=== PATIENT | male | born 1955 | race Caucasian/White ===

== ENCOUNTER 2019-12-23 12:28 | Outpatient (REF) | payer MEDICARE, MEDICAID, SELFPAY ==
[2019-12-23 15:22] LABS: Anion Gap 13 (12-20); Blood Urea Nitrogen 33 mg/dL (9-16); Calcium 8.9 mg/dL (8.4-10.2); Carbon Dioxide 27 mmol/L (22-29); Chloride 102 mmol/L (96-108); Estimated Glomerular Filt Rate > 60; Glucose Random 155 mg/dL (60-115); Potassium 3.8 mmol/l (3.3-5.1); Sodium 138 mmol/L (135-145)
== END 2019-12-23 12:29 | disposition home or self-care (01) ==
LOC: HO.LAB 12:28
PROVIDERS: PCP Internal Medicine; Referring Provider Internal Medicine; Visit Provider Internal Medicine Cardiovascular Disease
DX: I42.9 Cardiomyopathy, unspecified (principal); I25.10 Atherosclerotic heart disease of native coronary artery without angina pectoris
CPT/HCPCS: 80048; 93005; 99202

== ENCOUNTER → 2020-03-23 10:23 | Outpatient (BNVA) | payer MEDICARE, MEDICAID, SELFPAY | PROVIDERS: PCP Internal Medicine; Visit Provider Internal Medicine Cardiovascular Disease | DX: I25.118 Atherosclerotic heart disease of native coronary artery with other forms of angina pectoris (principal); I25.5 Ischemic cardiomyopathy; I10 Essential (primary) hypertension | CPT/HCPCS: 99212 ==

== ENCOUNTER → 2020-03-24 14:19 | Outpatient (REF) | payer MEDICARE, MEDICAID, SELFPAY ==
--- NOTE | 2020-03-24 14:37 | CA_ITS ---
Transthoracic Echocardiogram Patient (Last, First, Middle): Newton Bruner, Gender: Male Date of : 1955 Age: 64 Procedure Date: 03/24/2020 Procedure Type: Transthoracic Echocardiogram Location: OP Height: 175.26 cm Weight: 113.4 kg BSA: 2.27 m2 Heart Rate: bpm BP: 136 / 84 mmHg Vest Backer: Referring MD: Pavel Connor MD Symptoms: I42.9 - Cardiomyopathy, unspecified Study Quality: Fair ECG Rhythm: Sinus Conclusions: - The left ventricular systolic function is normal. The visually estimated ejection fraction is between 55-60%. - The left atrium is moderately dilated. - No obvious valvular pathology seen on this study. Findings Left Ventricle Normal left ventricular cavity size. There is mildly increased left ventricular wall thickness. The left ventricular systolic function is normal. The visually estimated ejection fraction is between 55-60%. E/E prime ratio is <8, consistent with normal filling pressures. Evidence suggests grade I (mild) diastolic dysfunction. Right Ventricle Normal right ventricular cavity size and systolic function. Atria The left atrium is moderately dilated. The right atrium is normal in size. Aortic Valve There is a normal trileaflet aortic valve. There is no aortic valve stenosis. There is no aortic valve regurgitation. Mitral Valve The mitral valve appears normal. There is trace mitral valve regurgitation. There is no mitral valve stenosis. Pulmonic Valve The pulmonic valve was not well visualized. Tricuspid Valve Normal tricuspid valve structure. There is trace tricuspid valve regurgitation. The pulmonary artery systolic pressure is normal. Great Vessels The aortic annulus, sinuses of valsalva, and asc aorta are normal in size. Venous The inferior vena cava is normal in size and collapses greater than 50% with inspiration. Pericardium/Pleural There is no evidence of pericardial effusion. Prior Study Comparison No prior study available for comparison. Recommendations, Care & Conclusions No obvious valvular pathology seen on this study. Measurements 2D Linear Measurements IVSd: 1.23 0.6-0.9/0.6-1.0 cm LVIDd: 4.09 3.9-5.3/4.2-5.9 cm LVIDd Index: 1.80 2.4-3.2/2.2-3.1 cm/m2 LVIDs: 2.93 2.0-3.6 cm LVPWd: 1.28 0.7-1.1 cm Ao Root: 3.20 2.1-3.5 cm LA Diam: 4.10 2.7-3.8/3.0-4.0 cm LAIDs Index: 1.81 1.5-2.3 cm/m2 LV Mass: 227.84 67-162/88-224 g LV Mass Index: 100.37 43-95/49-115 g/m2 LVOT Diam: 2.30 3.0+(-)1.3 cm 2D Systolic Function EF 4C: 51.20 >55% EF 2C: 55.80 >55% EF BiP: 54.30 >55% Mitral Valve MV Pk E: 0.54 MV PK A: 0.87 MV Decel Time: 190.00 E/A: 0.60 E'Lateral: 7.35 E'Medial: 7.06 E/E' Med: 7.60 E/E' Lat: 7.30 PHT: 56.00 MVA PHT: 3.93 Decel [place]: 2.83 Aortic Valve AoV Pk Josh: 1.31 AoV Mn Josh: 0.94 AoV VTI: 0.29 AoV Pk Grad: 7.00 Aov Mn Grad: 4.00 RACHEL Cont.VTI: 2.68 LVOT LVOT Pk Josh: 0.85 LVOT Mn Josh: 0.56 LVOT VTI: 0.19 LVOT Pk Grad: 3.00 LVOT Mn Grad: 2.00 LVOT Diam: 2.30 LVOT Area: 4.15 Diastolic Function MV Pk E: 0.54 MV Pk A: 0.87 E/A: 0.60 E'Medial: 7.06 E/E' Med: 7.60 E' Laterial: 7.35 E/E' Lat: 7.30 Tricuspid Valve TR Pk Josh: 2.24 TR Pk Grad: 20.00 Great Vessels Aorta Ao Root-2D: 3.20 2.0-3.7 cm Ao Asc: 3.70 2.1-3.4 cm Pulmonary Valve PV Pk Josh: 1.05 Peak PV Grad: 4.00 Updated in Other Vendor System with Status of Final Helio iRtchie MD electronically signed on 03/24/2020 4:32:34 PM with status of Final
== END ==
LOC: HO.CARD 14:19
PROVIDERS: Visit Provider Internal Medicine Cardiovascular Disease
DX: I42.9 Cardiomyopathy, unspecified (principal)
CPT/HCPCS: 93306

== ENCOUNTER → 2020-05-06 09:20 | Outpatient (BNVA) | payer MEDICARE, MEDICAID, SELFPAY | PROVIDERS: PCP Internal Medicine; Visit Provider Internal Medicine Cardiovascular Disease | DX: I25.118 Atherosclerotic heart disease of native coronary artery with other forms of angina pectoris (principal); I10 Essential (primary) hypertension | CPT/HCPCS: 99212 ==

== ENCOUNTER 2020-10-12 13:53 | Emergency (ER) | payer MEDICARE, MEDICAID, SELFPAY ==
[2020-10-12 14:08] VITALS: BP 100/58; PULSE 88; RESP 16; TEMP 37.1; O2SAT 98; BMI 32.1
--- NOTE | 2020-10-12 17:05 | ED_ITS ---
HPI - Eye Problem General Chief complaint: Eye Problems Stated complaint: right eye pain and swelling x2 weeks Time Seen by Provider: 10/12/20 16:04 Source: patient and EMS Mode of arrival: EMS Limitations: language barrier History of Present Illness HPI Narrative: 65 y/o male presenting with 2 weeks of intermittent black spots in his left eye and vision loss. He reports the black spot move when he moves his eye. When asked if it looks like a black curtain coming down and he reports yes and it is slightly worse each day.. He reports decreased vision in both eyes when he is out in the sunlight. He has not seen an eye doctor in several years. He has baseline bad vision. He cannot drive because of it. He reports his glucose has been well controlled at home 110-140's. chief complaint: vision change and other (black spots) Onset (ago): week(s) (2) Onset description: gradual Duration: progressively worsening Location: left eye Eye Symptoms: decreased vision Place: home Mechanism: none Severity: moderate Associated symptoms: none Treatments Prior to Arrival: none Related Data Patient tetanus UTD: Yes Home Medications Medication Instructions Recorded Confirmed atorvastatin 80 mg tablet 80 mg PO DAILY 12/23/19 12/23/19 carvedilol 6.25 mg tablet 6.25 mg PO BID 12/23/19 12/23/19 clopidogrel 75 mg tablet (Plavix) 75 mg PO DAILY 12/23/19 12/23/19 insulin NPH-regular 70-30 U-100 25 unit SUBCUT QAM 12/23/19 12/23/19 insulin 100 unit/mL subcutaneous pen (Novolin 70-30 FlexPen U-100 Insulin) metformin 1,000 mg tablet 1,000 mg PO BID 12/23/19 12/23/19 spironolactone 25 mg tablet 25 mg PO DAILY 12/23/19 12/23/19 torsemide 20 mg tablet 20 mg PO DAILY 12/23/19 12/23/19 Previous Rx's Medication Instructions Recorded sacubitril 49 mg-valsartan 51 mg 1 tab PO BID #60 tab 05/11/20 tablet (Entresto) Allergies Allergy/AdvReac Type Severity Reaction Status Date / Time No Known Allergies Allergy Unverified 10/31/19 17:28 Review of Systems Constitutional: Constitutional: Denies chills, Denies fever(s) and Denies headache(s) Eyes: Eyes: Reports blurry vision, Reports change in vision, Denies eye discharge, Reports floaters, Denies irritation, Denies itchy eyes, Denies loss of peripheral vision, Reports loss of vision, Reports photophobia, Reports spots in vision and Denies tunnel vision ENT: Denies dizziness and Denies headache(s) Cardiovascular: Cardiovascular: Denies chest pain and Denies dyspnea Respiratory: Respiratory: Denies dyspnea Gastrointestinal: Gastrointestinal: Denies nausea and Denies vomiting Neurologic: Denies dizziness, Denies headache(s) and Reports loss of vision Hematologic/Lymphatic: Hematologic/Lymphatic: Denies easy bleeding and Denies easy bruising Allergic/Immunologic: Allergic/Immunologic: Denies itchy eyes PMFSH Past Medical History Medical History Cardiomyopathy Coronary artery disease Surgical History (Updated 12/23/19 @ 13:40 by Pavel Connor MD) H/O heart bypass surgery History of open heart surgery Status post coronary artery bypass graft Family History Family History (Updated 12/23/19 @ 13:06 by LUIS López) Maternal Uncle Diabetes Maternal Grandmother Diabetes Cancer Social History Social History (Updated 12/23/19 @ 13:07 by LUIS López) Advance Directives: No Advance Directives Information Provided: No Physical Exam Vital Signs: Vital Signs: Last Vital Signs Temp 98.7 F 10/12/20 14:08 Pulse 88 10/12/20 14:08 Resp 16 10/12/20 14:08 BP 100/58 L 10/12/20 14:08 Pulse Ox 98 10/12/20 14:08 Body Mass Index 32.1 Const: General: cooperative, comfortable, no acute distress, alert and awake Nutritional Appearance: overweight Orientation/consciousness: patient oriented x3 Limitations: language barrier HENMT: Head: Yes normal to inspection, Yes normocephalic and Yes atraumatic Ears: hearing grossly normal bilaterally and external ears normal General nose exam: Normal external nose present and Normal nares present Face and sinus: Yes normal facial exam and Yes face symmetric Mouth: Normal oral and palatal mucosa present, lip normal and tongue normal Throat: Yes posterior oropharynx normal, Yes tonsils normal and Yes uvula midline Eyes: General: appearance normal, both eyes and all related structures Visual Scott: abnormal by confrontation distal vision loss bilaterally Alignment and Position: alignment normal Periorbital: periorbital findings normal Eyelids: Yes eyelids normal Conjunctivae: conjunctivae normal Sclerae: sclerae normal Corneas: corneas normal Pupils: Equal, round and reactive pupils present EOM: EOMs intact bilaterally Direct Ophtha lmoscopy: normal light reflex, no papilledema and photophobia Neck: Neck: Yes normal visual inspection and Yes no lymphadenopathy Chest: Chest palpation & inspection: normal inspection of the chest Resp: Effort & Inspection: normal respiratory effort and able to speak in complete sentences Skin: General skin exam: no rashes or lesions noted Neuro: General: patient oriented x3, gait normal and moves all extremities Cranial nerves: Yes Equal, round and reactive pupils present Extrem: General: Yes normal to inspection Psych: Appearance: grossly normal Mental Status: mental status grossly normal Speech and movement: Normal speech and movement present Course Course Course Narrative: 65 y/o male with history of DM and HTN presenting with black spots and vision loss in his left eye x2 weeks. IOP 19 bilaterally. VA noted and very poor - left 20/200 and right 20/100. He reports his baseline vision is poor, and they are both usually like his right eye. Bedside ultrasound done with Dr. Mitchell. Concern for possible vitreous detachment or hemorrhage on the left. Dr. Eric contacted and images sent. Unfortunately because his symptoms have been going on for 2 weeks there is nothing that can be done at this time. Recommend following up with Dr. Eric tomorrow. Patient agrees with plan and expressed understanding. Discharge Plan Discharge Clinical Impression: Vitreous hemorrhage of left eye Patient Disposition: Home, Self-Care Additional Instructions: Your symptoms are concerning for possible vitreous detachment or vitreous hemorrhage. No intervention is required at this time. Follow up with Dr. Eric tomorrow - he is aware of your case. Number listed below. If you develop new or worsening symptoms call 911 or come back to the ER for further evaluation. Divya s?ntomas son preocupantes por un posible desprendimiento de v?treo o hemorragia v?melania. No se requiere ninguna intervenci?n en mikal momento. Ree un seguimiento con el Dr. Eric ma?brien; ?l est? al tanto de lan kiet. N?shantel que aparece a continuaci?n. Si presenta s?ntomas nuevos o que empeoran, llame al 911 o regrese a la luz maria de emergencias para curtis evaluaci?n adicional. Prescriptions: No Action sacubitril-valsartan [Entresto] 49-51 mg tablet 1 tab PO BID Qty: 60 RF: 5 spironolactone 25 mg tablet 25 mg PO DAILY RF: 0 torsemide 20 mg tablet 20 mg PO DAILY RF: 0 clopidogrel [Plavix] 75 mg tablet 75 mg PO DAILY RF: 0 atorvastatin 80 mg tablet 80 mg PO DAILY RF: 0 carvedilol 6.25 mg tablet 6.25 mg PO BID RF: 0 metformin 1,000 mg tablet 1,000 mg PO BID RF: 0 Novolin 70-30 FlexPen U-100 100 unit/mL (70-30) insulin pen 25 unit subcut QAM RF: 0 Referrals: Jack Eric [Physician] - 1 day (possible vitreous hemorrhage or detachment)
== END 2020-10-12 18:56 | disposition home or self-care (01) ==
PROVIDERS: Emergency Provider Internal Medicine
DX: H43.12 Vitreous hemorrhage, left eye (principal); H57.11 Ocular pain, right eye; Z79.899 Other long term (current) drug therapy
CPT/HCPCS: 99283; 99284